=== PATIENT | female | born 1990 | race Caucasian/White ===

== ENCOUNTER → 2021-09-15 | Outpatient (CLI) | payer OTHER ==
[~2021-09-15] MED LIST: CENTANY30 GM TP
== END ==
LOC: MRI 13:47
DX: G93.2 Benign intracranial hypertension (principal)
CPT/HCPCS: 36415; 70543; 70553; 82565; 84520; A9577

== ENCOUNTER → 2021-09-23 | Outpatient (CLI) | payer OTHER ==
[2021-09-23 13:53] LABS: RBC (AUTOMATED) 100 10^6 (0); WBC (AUTOMATED 0 10^3 (0-5)
[2021-09-23 13:54] LABS: RBC (AUTOMATED) 100 10^6 (0); WBC (AUTOMATED 2 10^3 (0-5)
[2021-09-23 14:31] LABS: GLUCOSE,CSF 48 mg/dL (50-80); TOTAL PROTEIN,CSF 23 mg/dL (20-45)
[2021-09-27 14:14] LABS: CSF IGG INDEX 0.5 (0.0-0.7); CSF/SERUM ALB. INDEX 2 (0-8); IMMUNOGLOBULIN G, QN, SERUM 913 mg/dL (586-1602)
== END ==
LOC: RAD 09:56
PROVIDERS: Optometrist
DX: G93.2 Benign intracranial hypertension (principal)
CPT/HCPCS: 82040; 82784; 82945; 83916; 84157; 87070; 87205; 89051; Q9967

== ENCOUNTER 2021-09-25 13:17 | Emergency (ER) | payer OTHER ==
[2021-09-25 14:08] LABS: HEMOGLOBIN 12.8 gm/dl (12.3-15.3); RED BLOOD COUNT 4.47 M/UL (4.00-5.10); WHITE BLOOD COUNT 6.9 K/UL (4.5-11.0)
[2021-09-25 14:28] LABS: BUN/CREATININE RATIO 12 (0-10)
== END 2021-09-25 18:45 | disposition home or self-care (01) ==
LOC: ER1 13:17
PROVIDERS: Physician Assistant
DX: R51.9 Headache, unspecified (principal); F17.210 Nicotine dependence, cigarettes, uncomplicated
CPT/HCPCS: 80053; 85025; 85610; 96374; 96375; 99284; J1885; J2405; J7030